=== PATIENT | male | born 1995 | race American Indian/Alaskan Native ===

== ENCOUNTER 2019-08-18 19:04 | Emergency (ER) | payer MEDICAID ==
[2019-08-18 19:48] LABS: Basophils # (Auto) 0.1 K/mm3 (0.0-0.1); Basophils % (Auto) 1.1 % (0.0-1.8); Eosinophils % (Auto) 0.2 % (0.0-4.3); Hematocrit 42.7 % (35.5-45.6); Hemoglobin 14.7 gm/dl (11.8-15.2); Lymphocytes # (Auto) 1.8 K/mm3 (1.2-5.4); Lymphocytes % (Auto) 31.1 % (13.4-35.0); Mean Corpuscular HGB Conc 34 % (32-34); Mean Corpuscular Volume 90 fl (84-94); Monocytes # (Auto) 0.5 K/mm3 (0.0-0.8); Monocytes % (Auto) 8.6 % (0.0-7.3); Platelet Count 186 K/mm3 (140-440); Red Blood Count 4.76 M/mm3 (3.65-5.03)
[2019-08-18 20:10] LABS: Alanine Aminotransferase 7 units/L (7-56); Albumin 5.3 g/dL (3.9-5); BUN/Creatinine Ratio 21; Blood Urea Nitrogen 15 mg/dL (9-20); Calcium 9.9 mg/dL (8.4-10.2); Hemolysis Index 9
--- NOTE | 2019-08-18 22:57 | Cat Scan Report ---
CT head/brain wo con INDICATION: mental status change. TECHNIQUE: All CT scans at this location are performed using CT dose reduction for ALARA by means of automated e xposure control. COMPARISON: None available. FINDINGS: Visualized paranasal and mastoid sinuses are clear. Ventricles are symmetrical and normal in size. No mass, hemorrhage or other significant abnormality. IMPRESSION: 1. Negative study. Signer Name: Mahesh May MD Signed: 08/18/2019 10:53 PM Workstation Name: [id number]
[2019-08-19 00:06] VITALS: BP 111/81
[2019-08-19 00:45] LABS: Bilirubin,Urine NEG (Negative); Blood,Urine NEG (Negative); Color,Urine Amber (Yellow); Mucus,Urine 3+ /HPF; WBC,Urine < 1.0 /HPF (0.0-6.0)
[2019-08-19 00:46] LABS: Amphetamine Screen,Urine PRESUMPTIVE NEGATIVE; Benzodiazepines Screen,Urine PRESUMPTIVE NEGATIVE; Cocaine Screen,Urine PRESUMPTIVE NEGATIVE; Methadone Screen,Urine PRESUMPTIVE NEGATIVE; Opiate Screen,Urine PRESUMPTIVE NEGATIVE
[2019-08-19 01:00] LABS: Cannabinoid Screen,Urine PRESUMPTIVE POSITIVE
--- NOTE | 2019-08-19 02:22 | Emergency Department Report ---
ED General Adult HPI - General Chief complaint: Medical Clearance Stated complaint: POSS RELAPS OF MS Time Seen by Provider: 08/18/19 21:55 Source: patient, family Mode of arrival: Ambulatory Limitations: No Limitations - History of Present Illness Initial comments: 24-year-old -Prydeinig male with past medical history of multiple sclerosis that the emergency department with mom who is suspicious of him having a reaction to his current medication or worried of another issue going on stating that his behavior has changed. He reports no headaches, no dizziness, no blurred vision, no fever, chills, sweats no chest pain no palpitations no nausea no vomiting no rashes. Ms. Shelby having states that he does not believe there is any issues with himself feels that his mom is just overreacting to to him having a girlfriend and have been spending some time smoking weed. He states that he feels normal and feels that his medications are working fine. He was diagnosed with with MS about 3 to 4 years ago and has not had a relapse since while utilizing this medication. Improves with: none Worsens with: none Associated Symptoms: denies other symptoms Treatments Prior to Arrival: none - Related Data Previous Rx's Medication Instructions Recorded Last Taken Type Ibuprofen [Motrin 800 MG tab] 800 mg PO TID #30 tablet 04/20/13 Unknown Rx Allergies Allergy/AdvReac Type Severity Reaction Status Date / Time Penicillins Allergy Anaphylaxis Verified 04/20/13 11:38 ED Review of Systems ROS: Stated complaint: POSS RELAPS OF MS Other details as noted in HPI Comment: All other systems reviewed and negative ED Past Medical Hx - Past Medical History Previous Medical History?: Yes Additional medical history: MS - Surgical History Past Surgical History?: No - Social History Smoking Status: Never Smoker Substance Use Type: None - Medications Home Medications: Home Medications Medication Instructions Recorded Confirmed Last Taken Type Ibuprofen [Motrin 800 MG tab] 800 mg PO TID #30 tablet 04/20/13 Unknown Rx ED Physical Exam - General Limitations: No Limitations General appearance: alert, in no apparent distress - Head Head exam: Present: atraumatic, normocephalic - Eye Eye exam: Present: normal appearance, PERRL, EOMI. Absent: scleral icterus, conjunctival injection, nystagmus, periorbital swelling Pupils: Present: normal accommodation. Absent: irregular - ENT ENT exam: Present: normal exam, normal orophraynx, mucous membranes moist, TM's normal bilaterally - Neck Neck exam: Present: normal inspection, full ROM. Absent: tenderness, meningismus, lymphadenopathy, thyromegaly - Respiratory Respiratory exam: Present: normal lung sounds bilaterally. Absent: respiratory distress, wheezes, rales, rhonchi - Cardiovascular Cardiovascular Exam: Present: regular rate, normal rhythm. Absent: bradycardia, tachycardia, systolic murmur, diastolic murmur, rubs, gallop - GI/Abdominal GI/Abdominal exam: Present: soft, normal bowel sounds. Absent: distended, tenderness, guarding, hyperactive bowel sounds, hypoactive bowel sounds, organomegaly, mass, bruit - Rectal Rectal exam: Present: deferred - Extremities Exam Extremities exam: Present: normal inspection - Back Exam Back exam: Present: normal inspection - Neurological Exam Neurological exam: Present: alert, oriented X3 - Psychiatric Psychiatric exam: Present: normal affect, normal mood - Skin Skin exam: Present: warm, dry, intact, normal color. Absent: rash ED Course Vital Signs 08/18/19 08/19/19 19:13 00:06 Temperature 98.6 F 97.9 F Pulse Rate 108 H 65 Respiratory 18 13 Rate Blood Pressure 142/91 Blood Pressure 111/81 [right arm] O2 Sat by Pulse 98 98 Oximetry ED Medical Decision Making - Lab Data Result diagrams: 08/18/19 19:38 08/18/19 19:38 - Radiology Data Radiology results: [place] [address] Cat Scan Report Signed Patient: HUGO VILLARREAL MR#: [id number] : 1995 Acct:[id number] Age/Sex: 24 / M ADM Date: 08/18/19 Loc: ED Attending Dr: Ordering Physician: BILL OTT Date of Service: 08/18/19 Procedure(s): CT head/brain wo con Accession Number(s): [id number] cc: BILL OTT CT head/brain wo con INDICATION: mental status change. TECHNIQUE: All CT scans at this location are performed using CT dose reduction for ALARA by means of automated exposure control. COMPARISON: None available. FINDINGS: Visualized paranasal and mastoid sinuses are clear. Ventricles are symmetrical and normal in size. No mass, hemorrhage or other significant abnormality. IMPRESSION: 1. Negative study. Signer Name: Mahesh May MD Signed: 08/18/2019 10:53 PM Workstation Name: [id number] Transcribed By: TM Dictated By: Mahesh May MD Electronically Authenticated By: Mahesh May MD Signed Date/Time: 08/18/192252 DD/ 51 TD/TT: - Medical Decision Making 24-year-old -Prydeinig male with multiple sclerosis with alleged abnormal behavior but normal findings on CT scan and laboratory data. Patient is alert and oriented x3 no acute distress answers all questions with appropriately no findings to suggest any altered mental status. Plan is to discharge him home follow-up with his primary care provider and recommend that he limits or refrain from utilization of VEE with his current medication regimen Critical care attestation.: If time is entered above; I have spent that time in minutes in the direct care of this critically ill patient, excluding procedure time. ED Disposition Clinical Impression: Tetrahydrocannabinol (THC) use disorder, mild, abuse Disposition: DC-01 TO HOME OR SELFCARE Is pt being admited?: No Does the pt Need Aspirin: No Condition: Stable Instructions: Polysubstance Abuse (ED) Referrals: KELSY CACERES MD [Staff Physician] - 3-5 Days
== END 2019-08-19 01:36 | disposition home or self-care (01) ==
LOC: ED 19:04
DX: F12.10 Cannabis abuse, uncomplicated (principal); G35 Multiple sclerosis; Z88.0 Allergy status to penicillin; Z79.1 Long term (current) use of non-steroidal anti-inflammatories (NSAID)
CPT/HCPCS: 36415; 70450; 80053; 80307; 81001; 85025